=== PATIENT | male | born 1980 | race Caucasian/White ===

== ENCOUNTER 2017-11-14 20:59 | Emergency (ER) | payer OTHER ==
[~2017-11-14] VITALS: Ht 162.6 cm; Wt 75.0 kg
[2017-11-14 21:07] VITALS: BP 105/58; PULSE 99; RESP 16; TEMP 98; O2SAT 98
[2017-11-14 21:40] LABS: AUTOMATED NEUTROPHIL # 19.3 TH/MM3 (1.8-7.7); BASOPHIL # 0.1 TH/MM3 (0-0.2); BASOPHIL % 0.3 % (0.0-2.0); HEMOGLOBIN 17.1 GM/DL (13.0-17.0); LYMPHOCYTE # 0.9 TH/MM3 (1.0-4.8); MEAN CELL VOLUME 96.1 FL (80.0-100.0); MEAN CORPUSCULAR HEMOGLOBIN 33.6 PG (27.0-34.0); MEAN CORPUSCULAR HGB CONC 34.9 % (32.0-36.0); MEAN PLATELET VOLUME 7.5 FL (7.0-11.0); MONO % 10.9 % (0.0-8.0); MONOCYTE # 2.5 TH/MM3 (0-0.9); NEUT % 84.8 % (16.0-70.0); PLATELET COUNT 334 TH/MM3 (150-450); RED CELL DISTRIBUTION WIDTH 13.3 % (11.6-17.2); WHITE BLOOD COUNT 22.7 TH/MM3 (4.0-11.0)
[2017-11-14 21:41] VITALS: BP 120/93; PULSE 115; RESP 18; TEMP 98.9; O2SAT 98
[2017-11-14] MEDS ORDERED: LORazepam 2 MG/ML VIAL IM ONE (21:45)
[2017-11-14] MEDS ORDERED: HALOPERIDOL LACTATE 5 MG/ML AMP IM ONE (21:45)
[2017-11-14 22:40] LABS: ALBUMIN 4.3 GM/DL (3.4-5.0); AST (GOT) 15 U/L (15-37); BICARBONATE 21.5 MEQ/L (21.0-32.0); BLOOD UREA NITROGEN 7 MG/DL (7-18); CALCIUM 9.4 MG/DL (8.5-10.1); CHLORIDE 103 MEQ/L (98-107); CREATININE 1.61 MG/DL (0.60-1.30); GLOMERULAR FILTRATION RATE 49 ML/MIN (>89); GLUCOSE,RANDOM 169 MG/DL (74-106); SODIUM (NA) 136 MEQ/L (136-145)
[2017-11-14 22:41] LABS: ALT (GPT) 19 U/L (12-78)
[2017-11-14 22:43] LABS: ALKALINE PHOSPHATASE 137 U/L (45-117); TOTAL BILIRUBIN ADULT 1.2 MG/DL (0.2-1.0); TOTAL PROTEIN 7.6 GM/DL (6.4-8.2)
--- NOTE | 2017-11-14 23:13 | PD ---
HPI Chief Complaint: Psychiatric Symptoms Time Seen by Provider: 21:42 Travel History International Travel<30 days: No Contact w/Intl Traveler<30days: No Traveled to known affect area: No History of Present Illness HPI 36-year-old white male presents to emergency department under Klein act by PD. The patient had notified police that people had broken in and were after him. The patient states that he has been doing methamphetamine. He states that even though the police did not see these individuals they were there but were gone at the time police arrived. The patient denies any suicidal homicidal ideation. No toxic ingestions. No medical complaints. PFSH Past Medical History Medical History: Denies Significant Hx Immunizations Current: Yes Tetanus Vaccination: Unknown Influenza Vaccination: No Past Surgical History Surgical History: No Previous Surgery Social History Alcohol Use: Yes Tobacco Use: Yes Substance Use: Yes (meth two days ago) Allergies-Medications (Allergen,Severity, Reaction): Coded Allergies: No Known Allergies (Unverified , 11/14/17) Review of Systems General / Constitutional: No: Fever Eyes: No: Visual changes HENT: No: Headaches Cardiovascular: No: Chest Pain or Discomfort Respiratory: No: Shortness of Breath Gastrointestinal: No: Abdominal Pain Genitourinary: No: Dysuria Musculoskeletal: No: Pain Skin: No Rash Neurologic: No: Weakness Psychiatric: Positive: Disorder of Thought, Mood Disorder, Substance Abuse, No : Anxiety, Depression, Suicidal Ideations, Homicidal Ideation Endocrine: No: Polydipsia Hematologic/Lymphatic: No: Easy Bruising Physical Exam Narrative GENERAL: Well-nourished, well-developed patient. The patient is acutely paranoid and delusional. Patient is anxious. Patient appears to be suffering from substance abuse SKIN: Warm and dry. HEAD: Normocephalic and atraumatic. EYES: No scleral icterus. No injection or drainage. ENT: No nasal drainage noted. Mucous membranes pink. Airway patent. NECK: Supple, trachea midline. Moves head freely without obvious discomfort. CARDIOVASCULAR: Regular rate and rhythm without murmurs, gallops, or rubs. RESPIRATORY: Breath sounds equal bilaterally. No accessory muscle use. GASTROINTESTINAL: Abdomen soft, non-tender, nondistended. EXTREMITIES: No cyanosis or edema. BACK: Nontender without obvious deformity. No CVA tenderness. NEURO: Patient is alert and oriented. no sensorimotor deficits. Nonfocal. Normal speech. PSYCH: Positive visual hallucinations. Positive delusions. Data Data Last Documented VS Vital Signs Date Time Temp Pulse Resp B/P (MAP) Pulse Ox O2 Delivery O2 Flow Rate FiO2 11/14/17 21:41 98.9 115 18 120/93 (102) 98 Room Air Orders Orders Complete Blood Count With Diff (11/14/17 21:10) Comprehensive Metabolic Panel (11/14/17 21:10) Urinalysis - C+S If Indicated (11/14/17 21:10) Psych Screen (11/14/17 21:10) Drug Screen, Random Urine (11/14/17 21:10) Alcohol (Ethanol) (11/14/17 21:10) Salicylates (Aspirin) (11/14/17 21:10) Haloperidol Inj (Haldol Inj) (11/14/17 21:45) Lorazepam Inj (Ativan Inj) (11/14/17 21:45) Restraints Non-Violent WESLEY.Q3H (11/14/17 21:43) Labs Laboratory Tests Test 11/14/17 21:20 White Blood Count 22.7 TH/MM3 Red Blood Count 5.10 MIL/MM3 Hemoglobin 17.1 GM/DL Hematocrit 49.0 % Mean Corpuscular Volume 96.1 FL Mean Corpuscular Hemoglobin 33.6 PG Mean Corpuscular Hemoglobin Concent 34.9 % Red Cell Distribution Width 13.3 % Platelet Count 334 TH/MM3 Mean Platelet Volume 7.5 FL Neutrophils (%) (Auto) 84.8 % Lymphocytes (%) (Auto) 4.0 % Monocytes (%) (Auto) 10.9 % Eosinophils (%) (Auto) 0.0 % Basophils (%) (Auto) 0.3 % Neutrophils # (Auto) 19.3 TH/MM3 Lymphocytes # (Auto) 0.9 TH/MM3 Monocytes # (Auto) 2.5 TH/MM3 Eosinophils # (Auto) 0.0 TH/MM3 Basophils # (Auto) 0.1 TH/MM3 CBC Comment AUTO DIFF Differential Comment AUTO DIFF CONFIRMED Blood Urea Nitrogen 7 MG/DL Creatinine 1.61 MG/DL Random Glucose 169 MG/DL Total Protein 7.6 GM/DL Albumin 4.3 GM/DL Calcium Level 9.4 MG/DL Alkaline Phosphatase 137 U/L Aspartate Amino Transf (AST/SGOT) 15 U/L Alanine Aminotransferase (ALT/SGPT) 19 U/L Total Bilirubin 1.2 MG/DL Sodium Level 136 MEQ/L Potassium Level 3.4 MEQ/L Chloride Level 103 MEQ/L Carbon Dioxide Level 21.5 MEQ/L Anion Gap 12 MEQ/L Estimat Glomerular Filtration Rate 49 ML/MIN Salicylates Level 2.5 MG/DL Ethyl Alcohol Level LESS THAN 3 MG/DL MDM Medical Decision Making Medical Screen Exam Complete: Yes Emergency Medical Condition: Yes Medical Record Reviewed: Yes Interpretation(s) Laboratory Tests Test 11/14/17 21:20 White Blood Count 22.7 TH/MM3 Red Blood Count 5.10 MIL/MM3 Hemoglobin 17.1 GM/DL Hematocrit 49.0 % Mean Corpuscular Volume 96.1 FL Mean Corpuscular Hemoglobin 33.6 PG Mean Corpuscular Hemoglobin Concent 34.9 % Red Cell Distribution Width 13.3 % Platelet Count 334 TH/MM3 Mean Platelet Volume 7.5 FL Neutrophils (%) (Auto) 84.8 % Lymphocytes (%) (Auto) 4.0 % Monocytes (%) (Auto) 10.9 % Eosinophils (%) (Auto) 0.0 % Basophils (%) (Auto) 0.3 % Neutrophils # (Auto) 19.3 TH/MM3 Lymphocytes # (Auto) 0.9 TH/MM3 Monocytes # (Auto) 2.5 TH/MM3 Eosinophils # (Auto) 0.0 TH/MM3 Basophils # (Auto) 0.1 TH/MM3 CBC Comment AUTO DIFF Differential Comment AUTO DIFF CONFIRMED Blood Urea Nitrogen 7 MG/DL Creatinine 1.61 MG/DL Random Glucose 169 MG/DL Total Protein 7.6 GM/DL Albumin 4.3 GM/DL Calcium Level 9.4 MG/DL Alkaline Phosphatase 137 U/L Aspartate Amino Transf (AST/SGOT) 15 U/L Alanine Aminotransferase (ALT/SGPT) 19 U/L Total Bilirubin 1.2 MG/DL Sodium Level 136 MEQ/L Potassium Level 3.4 MEQ/L Chloride Level 103 MEQ/L Carbon Dioxide Level 21.5 MEQ/L Anion Gap 12 MEQ/L Estimat Glomerular Filtration Rate 49 ML/MIN Salicylates Level 2.5 MG/DL Ethyl Alcohol Level LESS THAN 3 MG/DL Differential Diagnosis MDM: High Differential diagnoses: Schizophrenia, schizoaffective disorder, bipolar, anxiety, depression, adjustment reaction, mood disorder NOS, ODD, depressive disorder NOS, dementia, dementia with agitation, psychosis NOS, substance induced mood disorder, DMDD, Asperger syndrome, infection,electrolyte abnormality, malingering. Narrative Course Mental health screening discussed with the patient. Psychiatric screen ordered. The patient is been medically cleared. The patient is given Haldol 5 mg IM and 2 mg of Ativan IM. This is medical clearance for psychiatric admission, substance induced psychosis Diagnosis Primary Impression: Medical clearance for psychiatric admission Additional Impression: Substance-induced psychotic disorder Condition: Stable Jaya Schneider Nov 14, 2017 23:13
[2017-11-15 10:41] VITALS: BP 105/63; PULSE 86; RESP 18; O2SAT 100
--- NOTE | 2017-11-15 14:13 | PD ---
History of Present Illness Chief Complaint: Psychiatric Symptoms Time Seen by Provider: 14:00 Travel History International Travel<30 Days: No Contact w/Intl Traveler<30days: No Known affected area: No Legal Status Legal Status: Klein Act Klein Act Signed By: Gulshan Ding History of Present Illness: 36-year-old male admitted under a Klein act for what appears to have been psychotic thinking. Patient felt there were men in his apartment pointing a gun at him and he claims there were cameras at his place of business as as well as some intruder on his car lot. Additionally, however, he admits to using methamphetamine last night. A toxicology screen was reportedly sent but the results are not back. At this time the patient denies any suicidal or homicidal ideation, plan or intent. He is still wanting to look at his place of business to determine if there are cameras there. However, he is verbally melani for safety and does not show any obvious psychotic symptoms at this time. His cognition is intact. He denies any suicidal or homicidal ideation, plan or intent. He is felt to be competent to do so. PFSH Past Medical History Medical History: Denies Significant Hx Immunizations Current: Yes Tetanus Vaccination: Unknown Influenza Vaccination: No Past Surgical History Surgical History: No Previous Surgery Psychiatric History Psychiatric History Hx Psychiatric Treatment: DENIED History of Inpatient Treatment: No Guns or firearms in home: No Social History Hx Alcohol Use: Yes Hx Tobacco Use: Yes Hx Substance Use: Yes Substance Use Type: Amphetamines-Stimulants Allergies-Medications (Allergen,Severity, Reaction): Coded Allergies: No Known Allergies (Unverified , 11/14/17) Reported Meds & Prescriptions Reported Meds & Active Scripts Active Active Prescriptions or Reported Medications Unobtainable Review of Systems Except as stated in HPI: all other systems reviewed are Neg Mental Status Examination Appearance: Appropriate Consciousness: Alert Orientation: x4 Motor Activity: Normal gait Speech: Unremarkable Language: Adequate Fund of Knowledge: Adequate Attention and Concentration: Adequate Memory: Unremarkable Mood: Appropriate Affect: Appropriate Thought Process & Associations: Intact Thought Content: Appropriate Hallucination Type: None Delusion Type: None Suicidal Ideation: No Suicidal Plan: No Suicidal Intention: No Homicidal Ideation: No Homicidal Plan: No Homicidal Intention: No Insight: Adequate Judgment: Adequate MDM Medical Decision Making Medical Record Reviewed: Yes Assessment/Plan Patient interviewed at bedside. Electronic medical record reviewed. Case discussed with nurse Radha. Patient does not meet Klein act criteria or psychiatric hospitalization criteria at this time. He would like to go home. Orders Orders Complete Blood Count With Diff (11/14/17 21:10) Comprehensive Metabolic Panel (11/14/17 21:10) Urinalysis - C+S If Indicated (11/14/17 21:10) Psych Screen (11/14/17 21:10) Drug Screen, Random Urine (11/14/17 21:10) Alcohol (Ethanol) (11/14/17 21:10) Salicylates (Aspirin) (11/14/17 21:10) Haloperidol Inj (Haldol Inj) (11/14/17 21:45) Lorazepam Inj (Ativan Inj) (11/14/17 21:45) Restraints Non-Violent WESLEY.Q3H (11/14/17 21:43) Diet Regular Basic (11/15/17 Breakfast) Diet Regular Basic (11/15/17 Lunch) Results Vital Signs Date Time Temp Pulse Resp B/P (MAP) Pulse Ox O2 Delivery O2 Flow Rate FiO2 11/15/17 10:41 86 18 105/63 (77) 100 Room Air 11/14/17 21:41 98.9 115 18 120/93 (102) 98 Room Air 11/14/17 21:07 98.0 99 16 105/58 (74) 98 Laboratory Tests Test 11/14/17 21:20 White Blood Count 22.7 Red Blood Count 5.10 Hemoglobin 17.1 Hematocrit 49.0 Mean Corpuscular Volume 96.1 Mean Corpuscular Hemoglobin 33.6 Mean Corpuscular Hemoglobin Concent 34.9 Red Cell Distribution Width 13.3 Platelet Count 334 Mean Platelet Volume 7.5 Neutrophils (%) (Auto) 84.8 Lymphocytes (%) (Auto) 4.0 Monocytes (%) (Auto) 10.9 Eosinophils (%) (Auto) 0.0 Basophils (%) (Auto) 0.3 Neutrophils # (Auto) 19.3 Lymphocytes # (Auto) 0.9 Monocytes # (Auto) 2.5 Eosinophils # (Auto) 0.0 Basophils # (Auto) 0.1 CBC Comment AUTO DIFF Differential Comment AUTO DIFF CONFIRMED Blood Urea Nitrogen 7 Creatinine 1.61 Random Glucose 169 Total Protein 7.6 Albumin 4.3 Calcium Level 9.4 Alkaline Phosphatase 137 Aspartate Amino Transf (AST/SGOT) 15 Alanine Aminotransferase (ALT/SGPT) 19 Total Bilirubin 1.2 Sodium Level 136 Potassium Level 3.4 Chloride Level 103 Carbon Dioxide Level 21.5 Anion Gap 12 Estimat Glomerular Filtration Rate 49 Salicylates Level 2.5 Ethyl Alcohol Level LESS THAN 3 Diagnosis Primary Impression: Brief psychotic disorder Prescriptions Unable to Obtain Active Prescriptions or Reported Meds Condition: Stable Willis Mcclellan MD Nov 15, 2017 14:13
--- NOTE | 2017-11-15 14:21 | PD ---
Physical Exam Date Seen by Provider: Nov 15, 2017 Time Seen by Provider: 14:20 Narrative 36-year-old male previously medically cleared by Jaya Miranda PA-C for psychiatric evaluation, was seen and evaluated by Dr. Mcclellan, the psychiatrist. Dr. Mcclellan feels the patient is psychiatrically stable for discharge. The patient remains medically stable at this time. Data Data Last Documented VS Vital Signs Date Time Temp Pulse Resp B/P (MAP) Pulse Ox O2 Delivery O2 Flow Rate FiO2 11/15/17 10:41 86 18 105/63 (77) 100 Room Air 11/14/17 21:41 98.9 Orders Orders Complete Blood Count With Diff (11/14/17 21:10) Comprehensive Metabolic Panel (11/14/17 21:10) Urinalysis - C+S If Indicated (11/14/17 21:10) Psych Screen (11/14/17 21:10) Drug Screen, Random Urine (11/14/17 21:10) Alcohol (Ethanol) (11/14/17 21:10) Salicylates (Aspirin) (11/14/17 21:10) Haloperidol Inj (Haldol Inj) (11/14/17 21:45) Lorazepam Inj (Ativan Inj) (11/14/17 21:45) Restraints Non-Violent WESLEY.Q3H (11/14/17 21:43) Diet Regular Basic (11/15/17 Breakfast) Diet Regular Basic (11/15/17 Lunch) Labs Laboratory Tests Test 11/14/17 21:20 White Blood Count 22.7 TH/MM3 Red Blood Count 5.10 MIL/MM3 Hemoglobin 17.1 GM/DL Hematocrit 49.0 % Mean Corpuscular Volume 96.1 FL Mean Corpuscular Hemoglobin 33.6 PG Mean Corpuscular Hemoglobin Concent 34.9 % Red Cell Distribution Width 13.3 % Platelet Count 334 TH/MM3 Mean Platelet Volume 7.5 FL Neutrophils (%) (Auto) 84.8 % Lymphocytes (%) (Auto) 4.0 % Monocytes (%) (Auto) 10.9 % Eosinophils (%) (Auto) 0.0 % Basophils (%) (Auto) 0.3 % Neutrophils # (Auto) 19.3 TH/MM3 Lymphocytes # (Auto) 0.9 TH/MM3 Monocytes # (Auto) 2.5 TH/MM3 Eosinophils # (Auto) 0.0 TH/MM3 Basophils # (Auto) 0.1 TH/MM3 CBC Comment AUTO DIFF Differential Comment AUTO DIFF CONFIRMED Blood Urea Nitrogen 7 MG/DL Creatinine 1.61 MG/DL Random Glucose 169 MG/DL Total Protein 7.6 GM/DL Albumin 4.3 GM/DL Calcium Level 9.4 MG/DL Alkaline Phosphatase 137 U/L Aspartate Amino Transf (AST/SGOT) 15 U/L Alanine Aminotransferase (ALT/SGPT) 19 U/L Total Bilirubin 1.2 MG/DL Sodium Level 136 MEQ/L Potassium Level 3.4 MEQ/L Chloride Level 103 MEQ/L Carbon Dioxide Level 21.5 MEQ/L Anion Gap 12 MEQ/L Estimat Glomerular Filtration Rate 49 ML/MIN Salicylates Level 2.5 MG/DL Ethyl Alcohol Level LESS THAN 3 MG/DL MDM Medical Record Reviewed: Yes Supervised Visit with CHRIS: Yes Narrative Course 36-year-old male previously medically cleared by Jaya Miranda PA-C for psychiatric evaluation, was seen and evaluated by Dr. Mcclellan, the psychiatrist. Dr. Mcclellan feels the patient is psychiatrically stable for discharge. The patient remains medically stable at this time. Diagnosis Primary Impression: Brief psychotic disorder Scripts Unable to Obtain Active Prescriptions or Reported Meds Disposition: 01 DISCHARGE HOME Condition: Stable Giancarlo Gonzales Nov 15, 2017 14:21
[2017-11-15 14:52] LABS: BACTERIA, URINE RARE /hpf; BILIRUBIN, URINE NEG (NEG); BLOOD, URINE TRACE (NEG); GLUCOSE,URINE NEG (NEG); KETONE, URINE 10 mg/dL (NEG); MUCUS URINE MOD /lpf (OCC); NITRITE,URINE NEG (NEG); SQUAMOUS EPITHELIAL CELL URINE <1 /hpf (0-5); URINE COLOR YELLOW (YELLW/STRAW); URINE LEUKOCYTE ESTERASE LARGE (NEG)
== END 2017-11-15 15:05 | disposition home or self-care (01) ==
LOC: NEDAMB 20:59 → NEPJ 11-15 15:05
DX: F23 Brief psychotic disorder (principal); F19.959 Other psychoactive substance use, unspecified with psychoactive substance-induced psychotic disorder, unspecified; Z72.0 Tobacco use
CPT/HCPCS: 80053; 80307; 81001; 85025; 96372; 99284; J1630; J2060

== ENCOUNTER 2018-01-31 06:30 | Emergency (ER) | payer SELFPAY ==
[~2018-01-31] VITALS: Ht 182.9 cm; Wt 65.0 kg
[2018-01-31 06:36] VITALS: BP 124/82; PULSE 128; RESP 18; TEMP 98.1; O2SAT 99
--- NOTE | 2018-01-31 06:48 | PD ---
HPI Chief Complaint: Psychiatric Symptoms Time Seen by Provider: 06:45 Travel History International Travel<30 days: No Contact w/Intl Traveler<30days: No Traveled to known affect area: No History of Present Illness HPI 37-year-old male with no significant medical history presents emergency department voluntarily for psychiatric evaluation. Patient states that people are following him and trying to kill him. He states that this is over a girls dope that is missing. He tells me that they have followed him everywhere. He has been in touch with the police and he feels that they are not taking them seriously.. He is keeping notes. He is fearful for his life. States he is having significant anxiety. Patient admits to methamphetamine use. He was recently evaluated in October of this year for acute psychotic disorder. Patient has no other symptoms to report. [facility] Past Medical History Anxiety: Yes Diminished Hearing: No Immunizations Current: Yes Tetanus Vaccination: Unknown Influenza Vaccination: No Past Surgical History Surgical History: No Previous Surgery Social History Alcohol Use: Yes Tobacco Use: Yes Substance Use: Yes (unknown) Allergies-Medications (Allergen,Severity, Reaction): Coded Allergies: No Known Allergies (Unverified , 01/31/18) Reported Meds & Prescriptions Reported Meds & Active Scripts Active Active Prescriptions or Reported Medications Unobtainable Review of Systems Except as stated in HPI: all other systems reviewed are Neg Physical Exam Narrative GENERAL: Well-nourished male patient, anxious, but in no acute distress. SKIN: Focused skin assessment warm/dry. HEAD: Atraumatic. Normocephalic. EYES: Pupils equal and round. No scleral icterus. No injection or drainage. ENT: No nasal bleeding or discharge. Mucous membranes pink and moist. NECK: Trachea midline. No JVD. CARDIOVASCULAR: Tachycardic rate and rhythm. No murmur appreciated. RESPIRATORY: No accessory muscle use. Clear to auscultation. Breath sounds equal bilaterally. GASTROINTESTINAL: Abdomen soft, non-tender, nondistended. Hepatic and splenic margins not palpable. MUSCULOSKELETAL: No obvious deformities. No clubbing. No cyanosis. No edema. NEUROLOGICAL: Awake and alert. No obvious cranial nerve deficits. Motor grossly within normal limits. Normal speech. Data Data Last Documented VS Vital Signs Date Time Temp Pulse Resp B/P (MAP) Pulse Ox O2 Delivery O2 Flow Rate FiO2 01/31/18 06:36 98.1 128 18 124/82 (96) 99 Orders Orders Complete Blood Count With Diff (01/31/18 06:45) Thyroid Stimulating Hormone (01/31/18 06:45) Basic Metabolic Panel (Bmp) (01/31/18 06:45) Psych Screen (01/31/18 06:45) Drug Screen, Random Urine (01/31/18 06:45) Alcohol (Ethanol) (01/31/18 06:45) MDM Medical Decision Making Medical Screen Exam Complete: Yes Emergency Medical Condition: Yes Medical Record Reviewed: Yes Differential Diagnosis Substance-induced psychosis versus mood disorder versus personality disorder versus adjustment reaction disorder Narrative Course 37-year-old male presents emergency department voluntarily for psychiatric evaluation. Lab work is ordered. Patient is quite tachycardic and anxious. He is given 1 L normal saline fluid here in the emergency department. Patient signed out to HARMONY Chaidez; she will review the lab work and medically cleared the patient for psychiatric screening as appropriate. Diagnosis Primary Impression: Substance-induced psychotic disorder Scripts Unable to Obtain Active Prescriptions or Reported Meds Condition: Stable Juhi Smith Jan 31, 2018 06:48
[2018-01-31 07:08] LABS: AUTOMATED NEUTROPHIL # 16.3 TH/MM3 (1.8-7.7); BASOPHIL # 0.1 TH/MM3 (0-0.2); BASOPHIL % 0.4 % (0.0-2.0); HEMATOCRIT 43.6 % (39.0-51.0); HEMOGLOBIN 15.3 GM/DL (13.0-17.0); LYMPHOCYTE # 1.2 TH/MM3 (1.0-4.8); MEAN CELL VOLUME 94.4 FL (80.0-100.0); MEAN CORPUSCULAR HEMOGLOBIN 33.1 PG (27.0-34.0); MEAN PLATELET VOLUME 7.3 FL (7.0-11.0); MONO % 10.2 % (0.0-8.0); NEUT % 83.4 % (16.0-70.0); PLATELET COUNT 256 TH/MM3 (150-450); RED BLOOD COUNT 4.62 MIL/MM3 (4.50-5.90); RED CELL DISTRIBUTION WIDTH 13.2 % (11.6-17.2); WHITE BLOOD COUNT 19.6 TH/MM3 (4.0-11.0)
--- NOTE | 2018-01-31 07:11 | PD ---
Physical Exam Time Seen by Provider: 07:11 Narrative I received report of change of shift from Juhi Smith DNP. Labs and psych evaluation pending. Data Data Last Documented VS Vital Signs Date Time Temp Pulse Resp B/P (MAP) Pulse Ox O2 Delivery O2 Flow Rate FiO2 01/31/18 13:27 97.6 76 16 123/78 (93) 99 Room Air Orders Orders Complete Blood Count With Diff (01/31/18 06:45) Thyroid Stimulating Hormone (01/31/18 06:45) Basic Metabolic Panel (Bmp) (01/31/18 06:45) Psych Screen (01/31/18 06:45) Drug Screen, Random Urine (01/31/18 06:45) Alcohol (Ethanol) (01/31/18 06:45) Lorazepam Inj (Ativan Inj) (01/31/18 09:00) Restraints Violent (01/31/18 10:48) Haloperidol Inj (Haldol Inj) (01/31/18 11:00) Diphenhydramine Inj (Benadryl Inj) (01/31/18 11:15) Diet Regular Basic (01/31/18 Lunch) Diet Regular Basic (01/31/18 Dinner) Labs Laboratory Tests Test 01/31/18 06:56 01/31/18 15:30 White Blood Count 19.6 TH/MM3 Red Blood Count 4.62 MIL/MM3 Hemoglobin 15.3 GM/DL Hematocrit 43.6 % Mean Corpuscular Volume 94.4 FL Mean Corpuscular Hemoglobin 33.1 PG Mean Corpuscular Hemoglobin Concent 35.0 % Red Cell Distribution Width 13.2 % Platelet Count 256 TH/MM3 Mean Platelet Volume 7.3 FL Neutrophils (%) (Auto) 83.4 % Lymphocytes (%) (Auto) 6.0 % Monocytes (%) (Auto) 10.2 % Eosinophils (%) (Auto) 0.0 % Basophils (%) (Auto) 0.4 % Neutrophils # (Auto) 16.3 TH/MM3 Lymphocytes # (Auto) 1.2 TH/MM3 Monocytes # (Auto) 2.0 TH/MM3 Eosinophils # (Auto) 0.0 TH/MM3 Basophils # (Auto) 0.1 TH/MM3 CBC Comment DIFF FINAL Differential Comment Blood Urea Nitrogen 15 MG/DL Creatinine 1.25 MG/DL Random Glucose 107 MG/DL Calcium Level 9.9 MG/DL Sodium Level 140 MEQ/L Potassium Level 3.7 MEQ/L Chloride Level 108 MEQ/L Carbon Dioxide Level 23.1 MEQ/L Anion Gap 9 MEQ/L Estimat Glomerular Filtration Rate 65 ML/MIN Thyroid Stimulating Hormone 3rd Gen 1.860 uIU/ML Ethyl Alcohol Level LESS THAN 3 MG/DL Urine Opiates Screen NEG Urine Barbiturates Screen NEG Urine Amphetamines Screen POS Urine Benzodiazepines Screen NEG Urine Cocaine Screen NEG Urine Cannabinoids Screen POS MDM Supervised Visit with CHRIS: No Narrative Course I received report of change of shift from Juhi Smith DNP. Labs and psych evaluation pending. 0831: I feel the patient is not an appropriate state of mind and feel that he is a threat to himself and possibly others. He is becoming more agitated, paranoid, and anxious; he is hallucinating and he thinks that people are trying to come after him to kill him. Klein act initiated. WBC 19.6, otherwise CBC unremarkable. CMP, TSH, EtOH unremarkable. Patient medically cleared for psychiatric evaluation Diagnosis Primary Impression: Substance-induced psychotic disorder Scripts Unable to Obtain Active Prescriptions or Reported Meds Condition: Stable Libertad Haji [facility] Jan 31, 2018 07:11
[2018-01-31 07:23] LABS: BICARBONATE 23.1 MEQ/L (21.0-32.0); BLOOD UREA NITROGEN 15 MG/DL (7-18); CALCIUM 9.9 MG/DL (8.5-10.1); CHLORIDE 108 MEQ/L (98-107); CREATININE 1.25 MG/DL (0.60-1.30); GLOMERULAR FILTRATION RATE 65 ML/MIN (>89); GLUCOSE,RANDOM 107 MG/DL (74-106); SODIUM (NA) 140 MEQ/L (136-145)
[2018-01-31] MEDS ORDERED: LORazepam 2 MG/ML VIAL IM ONE ×2 (09:00→22:45)
[2018-01-31 09:28] VITALS: BP 106/55; PULSE 78; RESP 18; TEMP 98.7; O2SAT 96
[2018-01-31] MEDS ORDERED: HALOPERIDOL LACTATE 5 MG/ML AMP IM ONE ×2 (11:00→22:45)
[2018-01-31] MEDS ORDERED: diphenhydrAMINE HCL 50 MG/ML VIAL IM ONE (11:15)
[2018-01-31 13:27] VITALS: BP 123/78; PULSE 76; RESP 16; TEMP 97.6; O2SAT 99
[2018-01-31 22:30] VITALS: BP 118/65; PULSE 96; RESP 18; O2SAT 98
[2018-02-01 04:42] VITALS: BP 99/59; PULSE 72; RESP 16; O2SAT 99
--- NOTE | 2018-02-01 09:42 | PD ---
Physical Exam Time Seen by Provider: 09:41 HARMONY Shea has evaluated patient, lifted the Klein act and cleared the patient for discharge. Data Data Last Documented VS Vital Signs Date Time Temp Pulse Resp B/P (MAP) Pulse Ox O2 Delivery O2 Flow Rate FiO2 02/01/18 04:42 72 16 99/59 (72) 99 Room Air 01/31/18 13:27 97.6 Orders Orders Complete Blood Count With Diff (01/31/18 06:45) Thyroid Stimulating Hormone (01/31/18 06:45) Basic Metabolic Panel (Bmp) (01/31/18 06:45) Psych Screen (01/31/18 06:45) Drug Screen, Random Urine (01/31/18 06:45) Alcohol (Ethanol) (01/31/18 06:45) Lorazepam Inj (Ativan Inj) (01/31/18 09:00) Restraints Violent (01/31/18 10:48) Haloperidol Inj (Haldol Inj) (01/31/18 11:00) Diphenhydramine Inj (Benadryl Inj) (01/31/18 11:15) Diet Regular Basic (01/31/18 Lunch) Diet Regular Basic (01/31/18 Dinner) Haloperidol Inj (Haldol Inj) (01/31/18 22:45) Lorazepam Inj (Ativan Inj) (01/31/18 22:45) Diet Regular Basic (02/01/18 Breakfast) Labs Laboratory Tests Test 01/31/18 06:56 01/31/18 15:30 White Blood Count 19.6 TH/MM3 Red Blood Count 4.62 MIL/MM3 Hemoglobin 15.3 GM/DL Hematocrit 43.6 % Mean Corpuscular Volume 94.4 FL Mean Corpuscular Hemoglobin 33.1 PG Mean Corpuscular Hemoglobin Concent 35.0 % Red Cell Distribution Width 13.2 % Platelet Count 256 TH/MM3 Mean Platelet Volume 7.3 FL Neutrophils (%) (Auto) 83.4 % Lymphocytes (%) (Auto) 6.0 % Monocytes (%) (Auto) 10.2 % Eosinophils (%) (Auto) 0.0 % Basophils (%) (Auto) 0.4 % Neutrophils # (Auto) 16.3 TH/MM3 Lymphocytes # (Auto) 1.2 TH/MM3 Monocytes # (Auto) 2.0 TH/MM3 Eosinophils # (Auto) 0.0 TH/MM3 Basophils # (Auto) 0.1 TH/MM3 CBC Comment DIFF FINAL Differential Comment Blood Urea Nitrogen 15 MG/DL Creatinine 1.25 MG/DL Random Glucose 107 MG/DL Calcium Level 9.9 MG/DL Sodium Level 140 MEQ/L Potassium Level 3.7 MEQ/L Chloride Level 108 MEQ/L Carbon Dioxide Level 23.1 MEQ/L Anion Gap 9 MEQ/L Estimat Glomerular Filtration Rate 65 ML/MIN Thyroid Stimulating Hormone 3rd Gen 1.860 uIU/ML Ethyl Alcohol Level LESS THAN 3 MG/DL Urine Opiates Screen NEG Urine Barbiturates Screen NEG Urine Amphetamines Screen POS Urine Benzodiazepines Screen NEG Urine Cocaine Screen NEG Urine Cannabinoids Screen POS MDM Supervised Visit with CHRIS: No Narrative Course HARMONY Ferguson has evaluated patient, lifted the Klein act and cleared the patient for discharge. Patient contracts safety. Denies suicidal or homicidal ideations. Patient will be provided community resource packet to [facility] for follow-up. Has friends and family for support. Patient was medically cleared by alternate provider prior to psych screening. Patient has been evaluated by psychiatry and and is now cleared for discharge. Diagnosis Primary Impression: Substance-induced psychotic disorder Referrals: [facility] (Out patient) [facility] Primary Care Physician Psychiatrist Rachael PATINO Behavioral Patient Instructions: General Instructions, Polysubstance Abuse (ED) Additional Instruction: Contract safety to your self and others Follow-up with psychiatry Follow-up with primary care provider Follow-up with Juan Ayala Return to the emergency department immediately with worsening of symptoms Med/Other Pt SpecificInfo: No Change to Meds, No Meds Exist/No RX given Scripts Unable to Obtain Active Prescriptions or Reported Meds Disposition: 01 DISCHARGE HOME Condition: Stable Libertad Haji Feb 01, 2018 09:42
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
== END 2018-02-01 10:14 | disposition home or self-care (01) ==
LOC: NEPD 06:30 → NEPJ 02-01 10:14
DX: F15.159 Other stimulant abuse with stimulant-induced psychotic disorder, unspecified (principal); F12.90 Cannabis use, unspecified, uncomplicated; Z72.0 Tobacco use
CPT/HCPCS: 80048; 80307; 84443; 85025; 96372; 99285; J1200; J1630; J2060

== ENCOUNTER 2018-02-01 21:51 | Emergency (ER) | payer SELFPAY ==
[~2018-02-01] VITALS: Ht 182.9 cm; Wt 65.0 kg
[2018-02-01 22:06] VITALS: BP 119/66; PULSE 10; PULSE 101; RESP 18; TEMP 97.8; O2SAT 100
--- NOTE | 2018-02-02 01:04 | PD ---
HPI Chief Complaint: Psychiatric Symptoms Time Seen by Provider: 00:37 Travel History International Travel<30 days: No Contact w/Intl Traveler<30days: No Traveled to known affect area: No History of Present Illness HPI 37-year-old white male presents emergency department for psychological evaluation. Patient states that he is feeling extremely paranoid and delusional. He states that he was evaluated and treated here in the ER a few days ago for acute psychosis secondary to methamphetamine abuse. He states that he has not done any methamphetamine since then. He is still seeing people who are not there. He is also hearing things that no one else years. He states that he cannot rest he is overwhelmed with anxiety. He denies any suicidal homicidal ideation. [facility] was just [facility] after being incarcerated overnight for trespassing. He denies any illnesses. PFSH Past Medical History Anxiety: Yes Diminished Hearing: No Immunizations Current: Yes Tetanus Vaccination: Unknown Influenza Vaccination: No Past Surgical History Surgical History: No Previous Surgery Social History Alcohol Use: Yes Tobacco Use: Yes Substance Use: Yes (unknown but pt denies) Allergies-Medications (Allergen,Severity, Reaction): Coded Allergies: No Known Allergies (Unverified , 02/01/18) Reported Meds & Prescriptions Reported Meds & Active Scripts Active Active Prescriptions or Reported Medications Unobtainable Review of Systems General / Constitutional: No: Fever Eyes: No: Visual changes HENT: No: Headaches Cardiovascular: No: Chest Pain or Discomfort Respiratory: No: Shortness of Breath Gastrointestinal: No: Abdominal Pain Genitourinary: No: Dysuria Musculoskeletal: No: Pain Skin: No Rash Neurologic: No: Weakness Psychiatric: Positive: Anxiety, Disorder of Thought, Mood Disorder, Substance Abuse, No: Depression, Suicidal Ideations, Homicidal Ideation Endocrine: No: Polydipsia Hematologic/Lymphatic: No: Easy Bruising Physical Exam Narrative GENERAL: Well-nourished, well-developed patient. SKIN: Warm and dry. HEAD: Normocephalic and atraumatic. EYES: No scleral icterus. No injection or drainage. ENT: No nasal drainage noted. Mucous membranes pink. Airway patent. NECK: Supple, trachea midline. Moves head freely without obvious discomfort. CARDIOVASCULAR: Regular rate and rhythm without murmurs, gallops, or rubs. RESPIRATORY: Breath sounds equal bilaterally. No accessory muscle use. GASTROINTESTINAL: Abdomen soft, non-tender, nondistended. EXTREMITIES: No cyanosis or edema. BACK: Nontender without obvious deformity. No CVA tenderness. NEURO: Patient is alert and oriented. no sensorimotor deficits. Nonfocal. Normal speech. PSYCH: Patient is acutely paranoid. He is having both visual and auditory hallucinations. Data Data Last Documented VS Vital Signs Date Time Temp Pulse Resp B/P (MAP) Pulse Ox O2 Delivery O2 Flow Rate FiO2 02/01/18 22:06 97.8 101 18 119/66 (83) 100 Orders Orders Psych Screen (02/02/18 00:49) Hydroxyzine Pamoate (Vistaril) (02/02/18 01:00) Drug Screen, Random Urine (02/02/18 00:58) Ed Discharge Order (02/02/18 02:10) Labs Laboratory Tests Test 02/02/18 01:00 Urine Opiates Screen NEG Urine Barbiturates Screen NEG Urine Amphetamines Screen POS Urine Benzodiazepines Screen NEG Urine Cocaine Screen NEG Urine Cannabinoids Screen POS MDM Medical Decision Making Medical Screen Exam Complete: Yes Emergency Medical Condition: Yes Medical Record Reviewed: Yes Differential Diagnosis MDM: High Differential diagnoses: Schizophrenia, schizoaffective disorder, bipolar, anxiety, depression, adjustment reaction, mood disorder NOS, ODD, depressive disorder NOS, psychosis NOS, substance-induced psychosis, infection,electrolyte abnormality, malingering. Narrative Course Mental health screening discussed with the patient. Psychiatric screen ordered. The patient is not a threat to himself or others. I do not believe that he requires inpatient management. Patient was given Vistaril 50 mg p.o. I discussed the case with the psych screener who will come down and evaluate the patient. The patient has been evaluated by the psych screener. He also agrees that the patient does not meet inpatient management. There is no indication for involuntary admission. Patient is given outpatient treatment information is considered medically stable for discharge. This is a substance-induced psychosis Diagnosis Primary Impression: Substance-induced psychotic disorder Patient Instructions: General Instructions Additional Instructions: Rest. Increase fluids. Avoid alcohol. Avoid illegal substances.. Follow-up with [facility] for detox. Follow-up with [email or web address] Do not operate a car or any heavy machinery under the influence of alcohol or drugs. Follow-up with a medical doctor this week. Return to the ER for emergencies Med/Other Pt SpecificInfo: No Meds Exist/No RX given Scripts Unable to Obtain Active Prescriptions or Reported Meds Disposition: 01 DISCHARGE HOME Condition: Jaya Gonzales Feb 02, 2018 01:04
== END 2018-02-02 06:27 | disposition home or self-care (01) ==
LOC: NEPD 21:51
DX: F19.959 Other psychoactive substance use, unspecified with psychoactive substance-induced psychotic disorder, unspecified (principal); Z72.0 Tobacco use
CPT/HCPCS: 80307; 99283